=== PATIENT | male | born 1970 | race Caucasian/White ===

== ENCOUNTER 2018-09-01 15:30 | Observation (INO) ==
--- NOTE | 2018-09-01 16:10 | Emergency Department Note ---
Disposition Clinical Impression: Chest pain Qualifiers: Chest pain type: unspecified Qualified Code(s): R07.9 - Chest pain, unspecified Disposition: Admitted As Inpatient Referrals: NONE,PCP [Primary Care Provider] - Forms: ED Satisfaction Letter Chest Pain HPI - General Chief Complaint: ED Chest Pain Stated Complaint: Chest Pain Time Seen by Provider: 09/01/18 15:33 Source: patient, EMS Limitations: no limitations Vital Signs Reviewed: Yes Nursing Notes Reviewed: Yes - History of Present Illness HPI Narrative: I have re-performed and reviewed the history documented by the medical student, and I confirm its accuracy except as noted below Patient is a 48-year-old male with past medical history including hyperlipidemia, type 2 diabetes mellitus, who presents with a chief complaint of substernal chest pain since 1400 today. Patient states he has had 15 episodes of substernal chest pain which he describes as pressure that is nonradiating and lasts for 2-3 seconds at a time. 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 He complains of some nausea with these episodes. No diaphoresis. Denies shortness of breath, lightheadedness. For the past 2 days he does note he has had pain down his left arm associated with nausea but no vomiting. he has never had this before. He was told he had a history of acute ischemic events noted on EKGs in September when he had his shoulder surgery. He has not had a catheterization or stent placement. Family history significant for grandfather from STEMI at 57. Also denies history of blood clots, lower extremity swelling, recent surgery or immobilization, hemoptysis, hormone therapy. Patient arrived via EMS and received 324 mg of aspirin as well as oxygen. Severity scale (1-10): 0 - Related Data Allergies Allergy/AdvReac Type Severity Reaction Status Date / Time No Known Allergies Allergy Verified 09/01/18 15:43 All systems ED: reviewed and negative except as stated. Review of Systems: As Per HPI Constitutional: Denies: fever, chills Eyes: Denies: eye pain, vision change ENT ED: Denies: ear pain, throat pain Cardiovascular: Reports: chest pain. Denies: palpitations Respiratory: Denies: cough, dyspnea, wheezes Gastrointestinal: Reports: nausea. Denies: abdominal pain, vomiting Genitourinary: Denies: urgency, dysuria Musculoskeletal: Denies: back pain, neck pain Integumentary: Denies: rash Neurological: Denies: headache, weakness Hematological/Lymphatic: Denies: easy bleeding, easy bruising Chest Pain PMH - Past Medical History Medical history: Reports: diabetes, hyperlipidemia Psychiatric history: Reports: no psych history - Social History Smoking Status: Never smoker Alcohol use: Reports: none Drug use: Reports: none Physical Exam - General Limitations: no limitations General appearance: alert, in no apparent distress - Head Head exam: atraumatic, normocephalic - Eye Eye exam: Present: EOMI - ENT ENT exam: normal oropharynx, mucous membranes moist - Neck Neck exam: Present: full ROM, trachea midline - Chest Chest inspection: Present: normal inspection, symmetric chest wall rise. Absent: tenderness - Respiratory Respiratory exam: Present: normal lung sounds bilaterally. Absent: respiratory distress, wheezes - Cardiovascular Cardiovascular exam: Present: regular rate, normal rhythm, normal heart sounds, other (Bilateral radial pulses are equal) - Abdominal Exam Abdominal exam: Present: soft, Non-Tender. Absent: distention - Neurological Exam Neurological exam: Present: alert, oriented X3, CN II-XII intact - Psychiatric Psychiatric exam: Present: normal affect, normal mood - Skin Skin exam: Present: warm, dry, intact. Absent: diaphoresis, pallor Course Vital Signs Temperature 99.8 F H 09/01/18 15:36 Pulse Rate 83 09/01/18 15:36 Respiratory Rate 18 09/01/18 15:36 Blood Pressure 151/107 09/01/18 15:36 O2 Sat by Pulse Oximetry 97 09/01/18 15:36 Temperature 99.8 F H 09/01/18 15:36 Pulse Rate 83 09/01/18 15:36 Respiratory Rate 18 09/01/18 15:36 Blood Pressure 151/107 09/01/18 15:36 O2 Sat by Pulse Oximetry 97 09/01/18 15:36 Oxygen Delivery Oxygen Delivery Room Air Chest Pain - MDM Narrative Medical decision making narrative: Patient presents with chest pain and is currently denies any pain. He received 324 mg of aspirin. Will obtain cardiac workup to evaluate for acute ischemic event with EKG, CXR, troponin, CBC, BMP. Doubt PE as PERC is negative. Blood pressures are elevated and he denies history of hypertension. He is currently on IVFs. Will monitor pain and do serial EKGs as needed. Anticipate patient will be admitted. Patient received aspirin en route via EMS does not need nitroglycerin at this time as he is chest pain-free. 1700 Upon reevaluation, he has had 2 episodes of chest pain that lasted 2-3 seconds and resolved spontaneously. No associated symptoms. Labs reviewed. Troponin is normal. EKG did not show any ST elevation or depression. He has not needed nitroglycerin during his stay. Blood pressure is improved. We will obtain a second troponin and ekg at 1999 and reevaluate. Chest x-ray normal. 2019 He is not had persistent chest pain. Repeat EKG reviewed. No acute ST elevation or depression. EKG appears to be unchanged from prior. Repeat troponin negative. Given the patient's heart score of 4 had a long discussion with the patient and his family at bedside on whether to discharge him or admit him. We discussed with cardiology, who states they would like the patient to be admitted for a stress test as they cannot guarantee close follow-up as an outpatient given the holiday. Discussed with hospitalist who will admit the patient. This was discussed with patient and family and they are agreeable to the plan of care. He will be admitted for further chest pain workup. - Medical Records Medical records reviewed: Yes I reviewed the patient's medical records. - Lab Data Lab results reviewed: Yes I reviewed the patient's lab results. Result diagrams: 09/01/18 16:18 09/01/18 16:18 Lab Results 09/01/18 09/01/18 09/01/18 Range/Units 16:18 16:18 16:18 WBC 8.6 (4.3-11.1) K/mcL RBC 5.12 (4.19-5.50) M/mcL Hgb 16.0 (12.9-16.9) g/dL Hct 45.9 (37.5-50.1) % MCV 89.6 (83.0-100.0) fL MCH 31.3 (28.0-33.3) pg MCHC 34.9 (31.6-35.5) g/dL RDW 13.0 (11.5-14.5) % Plt Count 166 (140-400) K/mcL MPV 11.5 (9.4-12.4) fL Immature Gran % 0.9 (0-4) % Seg Neutrophils % 65.2 % Lymphocytes % 23.0 % Monocytes % 9.0 % Eosinophils % 1.2 % Basophils % 0.7 % Neutrophils # 5.6 (1.6-8.9) K/mcL Lymphocytes # 2.0 (0.6-4.6) K/mcL Monocytes # 0.8 (0.0-1.3) K/mcL Eosinophils # 0.1 (0.0-0.6) K/mcL Basophils # 0.1 (0.0-0.2) K/mcL PT 12.2 H (9.4-12.1) Seconds INR 1.1 APTT 27.3 (26.0-36.0) Seconds Sodium 135 L (136-145) mEq/L Potassium 3.8 (3.5-5.1) mEq/L Chloride 105 (98-107) mEq/L Carbon Dioxide 20 L (23-29) mEq/L BUN 17 (6-20) mg/dL Creatinine 0.99 (0.70-1.30) mg/dL Est GFR ( Amer) > 60 (> 60) Est GFR (Non-Af Amer) > 60 (> 60) BUN/Creatinine Ratio 17 (6-26) Glucose 234 H (70-105) mg/dL Calculated Osmolality 289 (280-300) Calcium 9.1 (8.6-10.3) mg/dL Troponin I < 0.03 (< 0.04) ng/mL 09/01/18 Range/Units 20:35 WBC (4.3-11.1) K/mcL RBC (4.19-5.50) M/mcL Hgb (12.9-16.9) g/dL Hct (37.5-50.1) % MCV (83.0-100.0) fL MCH (28.0-33.3) pg MCHC (31.6-35.5) g/dL RDW (11.5-14.5) % Plt Count (140-400) K/mcL MPV (9.4-12.4) fL Immature Gran % (0-4) % Seg Neutrophils % % Lymphocytes % % Monocytes % % Eosinophils % % Basophils % % Neutrophils # (1.6-8.9) K/mcL Lymphocytes # (0.6-4.6) K/mcL Monocytes # (0.0-1.3) K/mcL Eosinophils # (0.0-0.6) K/mcL Basophils # (0.0-0.2) K/mcL PT (9.4-12.1) Seconds INR APTT (26.0-36.0) Seconds Sodium (136-145) mEq/L Potassium (3.5-5.1) mEq/L Chloride (98-107) mEq/L Carbon Dioxide (23-29) mEq/L BUN (6-20) mg/dL Creatinine (0.70-1.30) mg/dL Est GFR ( Amer) (> 60) Est GFR (Non-Af Amer) (> 60) BUN/Creatinine Ratio (6-26) Glucose (70-105) mg/dL Calculated Osmolality (280-300) Calcium (8.6-10.3) mg/dL Troponin I < 0.03 (< 0.04) ng/mL - Radiology Data Radiology results reviewed: Yes I reviewed the patient's radiology results. Chest X-Ray 09/01/18 16:04 IMPRESSION: Negative chest. D/ / Zoey Tsang MD / Zoey Tsang MD Interpreting Provider: Zoey Tsang MD - EKG Data EKG attestation: Yes I reviewed and interpreted this EKG. EKG results narrative: EKG at 1539 shows sinus rhythm with heart rate 82. QT interval 379. QTc interval 443. 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 There is no new acute ST elevations or depressions.
--- NOTE | 2018-09-01 16:14 | Emergency Department Note ---
Disposition Clinical Impression: Chest pain Disposition: Still a Patient Referrals: NONE,PCP [Primary Care Provider] - Forms: ED Satisfaction Letter General Adult HPI - General Chief complaint: ED Chest Pain Stated complaint: Chest Pain Time Seen by Provider: 09/01/18 15:33 Source: patient, EMS Limitations: no limitations - History of Present Illness HPI Narrative: 48 year old male patient presents to the ED with chief complaint of chest pain. 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 He describes it as a pressure in the middle of his chest, he states it lasted for 2-3 seconds and occurred every 3-5 minutes, he admitted to having dizziness with this episode. Patient stated that at 2:50pm his pain disappeared. He states that on Friday08/30/18 he felt left shoulder pain and had some nausea but denied any vomiting. Today he denied any fever, diaphoresis, headache, nausea, vomiting, blurry vision, shortness of breath, numbness, tingling, constipation, diarrhea. Patient denies smoking, drinking alcohol, or any illicit drug use. He has a family history of cardiac disease on his mother's side, Grandfather at age 57 due to cardiac causes. Patient was brought to the hospital via EMS who gave him four 81 mg Aspirin and oxygen. Onset (ago): hour(s) Location: chest Radiation: non-radiation Pain Scale: 0 Quality: crushing Consistency: now resolved Treatments Prior to Arrival: Aspirin - Related Data Allergies Allergy/AdvReac Type Severity Reaction Status Date / Time No Known Allergies Allergy Verified 09/01/18 15:43 Constitutional: Denies: fever, weakness Cardiovascular: Reports: chest pain. Denies: dyspnea on exertion, edema Respiratory: Denies: cough, dyspnea, wheezes Gastrointestinal: Reports: nausea. Denies: abdominal pain, vomiting, diarrhea, constipation Genitourinary: Denies: dysuria Neurological: Reports: other (Dizziness). Denies: headache, weakness, numbness Past Medical History - Past Medical History Medical history: Reports: diabetes, hyperlipidemia Psychiatric history: Reports: no psych history - Social History Smoking Status: Never smoker Smokeless Tobacco Status: No Alcohol use: Reports: none Drug use: Reports: none Physical Exam - General Limitations: no limitations General appearance: alert, in no apparent distress - Head Head exam: atraumatic, normocephalic - Eye Eye exam: Present: normal appearance, PERRL - ENT ENT exam: normal exam, mucous membranes moist - Chest Chest inspection: Present: normal inspection, symmetric chest wall rise - Respiratory Respiratory exam: Present: normal lung sounds bilaterally - Cardiovascular Cardiovascular exam: Present: regular rate, normal rhythm - Abdominal Exam Abdominal exam: Present: soft, Non-Tender, normal bowel sounds - Neurological Exam Neurological exam: Present: alert, oriented X3 - Psychiatric Psychiatric exam: Present: normal affect, normal mood - Skin Skin exam: Present: warm, intact, normal color Course Vital Signs Temperature 99.8 F H 09/01/18 15:36 Pulse Rate 83 09/01/18 15:36 Respiratory Rate 18 09/01/18 15:36 Blood Pressure 151/107 09/01/18 15:36 O2 Sat by Pulse Oximetry 97 09/01/18 15:36 Temperature 99.8 F H 09/01/18 15:36 Pulse Rate 83 09/01/18 15:36 Respiratory Rate 18 09/01/18 15:36 Blood Pressure 151/107 09/01/18 15:36 O2 Sat by Pulse Oximetry 97 09/01/18 15:36 Oxygen Delivery Oxygen Delivery Room Air Medical Decision Making - Lab Data Result diagrams: 09/01/18 16:18 09/01/18 16:18 Lab Results 09/01/18 09/01/18 09/01/18 Range/Units 16:18 16:18 16:18 WBC 8.6 (4.3-11.1) K/mcL RBC 5.12 (4.19-5.50) M/mcL Hgb 16.0 (12.9-16.9) g/dL Hct 45.9 (37.5-50.1) % MCV 89.6 (83.0-100.0) fL MCH 31.3 (28.0-33.3) pg MCHC 34.9 (31.6-35.5) g/dL RDW 13.0 (11.5-14.5) % Plt Count 166 (140-400) K/mcL MPV 11.5 (9.4-12.4) fL Immature Gran % 0.9 (0-4) % Seg Neutrophils % 65.2 % Lymphocytes % 23.0 % Monocytes % 9.0 % Eosinophils % 1.2 % Basophils % 0.7 % Neutrophils # 5.6 (1.6-8.9) K/mcL Lymphocytes # 2.0 (0.6-4.6) K/mcL Monocytes # 0.8 (0.0-1.3) K/mcL Eosinophils # 0.1 (0.0-0.6) K/mcL Basophils # 0.1 (0.0-0.2) K/mcL PT 12.2 H (9.4-12.1) Seconds INR 1.1 APTT 27.3 (26.0-36.0) Seconds Sodium 135 L (136-145) mEq/L Potassium 3.8 (3.5-5.1) mEq/L Chloride 105 (98-107) mEq/L Carbon Dioxide 20 L (23-29) mEq/L BUN 17 (6-20) mg/dL Creatinine 0.99 (0.70-1.30) mg/dL Est GFR ( Amer) > 60 (> 60) Est GFR (Non-Af Amer) > 60 (> 60) BUN/Creatinine Ratio 17 (6-26) Glucose 234 H (70-105) mg/dL Calculated Osmolality 289 (280-300) Calcium 9.1 (8.6-10.3) mg/dL Troponin I < 0.03 (< 0.04) ng/mL
[2018-09-01 16:29] LABS: Basophils # 0.1 K/mcL (0.0-0.2); Basophils % 0.7 %; Eosinophils # 0.1 K/mcL (0.0-0.6); Eosinophils % 1.2 %; Hematocrit 45.9 % (37.5-50.1); Immature Granulocytes % 0.9 % (0-4); Mean Corpuscular HGB Conc 34.9 g/dL (31.6-35.5); Mean Corpuscular Hemoglobin 31.3 pg (28.0-33.3); Mean Corpuscular Volume 89.6 fL (83.0-100.0); Mean Platelet Volume 11.5 fL (9.4-12.4); Monocytes # 0.8 K/mcL (0.0-1.3); Neutrophils # 5.6 K/mcL (1.6-8.9); Platelet Count 166 K/mcL (140-400); Red Blood Count 5.12 M/mcL (4.19-5.50); Segmented Neutrophils % 65.2 %
[2018-09-01 16:40] LABS: INR 1.1; Prothrombin Time 12.2 Seconds (9.4-12.1)
[2018-09-01 16:43] LABS: Activated Partial Thrombo Time 27.3 Seconds (26.0-36.0)
[2018-09-01 16:51] LABS: Troponin I < 0.03 ng/mL (< 0.04)
[2018-09-01 16:52] LABS: BUN/Creatinine Ratio 17 (6-26); Blood Urea Nitrogen 17 mg/dL (6-20); Calcium 9.1 mg/dL (8.6-10.3); Carbon Dioxide 20 mEq/L (23-29); Chloride 105 mEq/L (98-107); Glucose 234 mg/dL (70-105); Osmolality,Calculated 289 (280-300); Potassium 3.8 mEq/L (3.5-5.1); Sodium 135 mEq/L (136-145); eGFR For Non-African Americans > 60 (> 60)
--- NOTE | 2018-09-01 20:52 | Emergency Department Note ---
Disposition Clinical Impression: Chest pain Disposition: Still a Patient Referrals: NONE,PCP [Primary Care Provider] - Forms: ED Satisfaction Letter General Adult HPI - General Chief complaint: ED Chest Pain Stated complaint: Chest Pain Time Seen by Provider: 09/01/18 15:33 Source: patient, EMS Limitations: no limitations - History of Present Illness Location: chest Pain Scale: 0 Quality: crushing Treatments Prior to Arrival: Aspirin - Related Data Allergies Allergy/AdvReac Type Severity Reaction Status Date / Time No Known Allergies Allergy Verified 09/01/18 15:43 Constitutional: Denies: fever, weakness Eyes: Denies: eye pain, vision change ENT ED: Denies: ear pain, throat pain Cardiovascular: Reports: chest pain. Denies: dyspnea on exertion, edema Respiratory: Denies: cough, dyspnea, wheezes Gastrointestinal: Reports: nausea. Denies: abdominal pain, vomiting, diarrhea, constipation Genitourinary: Denies: dysuria Musculoskeletal: Denies: back pain, neck pain Integumentary: Denies: rash Neurological: Reports: other (Dizziness). Denies: headache, weakness, numbness Hematological/Lymphatic: Denies: easy bleeding, easy bruising Past Medical History - Past Medical History Medical history: Reports: diabetes, hyperlipidemia Psychiatric history: Reports: no psych history - Social History Smoking Status: Never smoker Smokeless Tobacco Status: No Alcohol use: Reports: none Drug use: Reports: none Physical Exam - General Limitations: no limitations General appearance: alert, in no apparent distress Course Vital Signs Temperature 99.8 F H 09/01/18 15:36 Pulse Rate 83 09/01/18 15:36 Respiratory Rate 18 09/01/18 15:36 Blood Pressure 151/107 09/01/18 15:36 O2 Sat by Pulse Oximetry 97 09/01/18 15:36 Temperature 99.8 F H 09/01/18 15:36 Pulse Rate 83 09/01/18 15:36 Respiratory Rate 18 09/01/18 15:36 Blood Pressure 151/107 09/01/18 15:36 O2 Sat by Pulse Oximetry 97 09/01/18 15:36 Oxygen Delivery Oxygen Delivery Room Air Medical Decision Making - Lab Data Result diagrams: 09/01/18 16:18 09/01/18 16:18 Lab Results 09/01/18 09/01/18 09/01/18 Range/Units 16:18 16:18 16:18 WBC 8.6 (4.3-11.1) K/mcL RBC 5.12 (4.19-5.50) M/mcL Hgb 16.0 (12.9-16.9) g/dL Hct 45.9 (37.5-50.1) % MCV 89.6 (83.0-100.0) fL MCH 31.3 (28.0-33.3) pg MCHC 34.9 (31.6-35.5) g/dL RDW 13.0 (11.5-14.5) % Plt Count 166 (140-400) K/mcL MPV 11.5 (9.4-12.4) fL Immature Gran % 0.9 (0-4) % Seg Neutrophils % 65.2 % Lymphocytes % 23.0 % Monocytes % 9.0 % Eosinophils % 1.2 % Basophils % 0.7 % Neutrophils # 5.6 (1.6-8.9) K/mcL Lymphocytes # 2.0 (0.6-4.6) K/mcL Monocytes # 0.8 (0.0-1.3) K/mcL Eosinophils # 0.1 (0.0-0.6) K/mcL Basophils # 0.1 (0.0-0.2) K/mcL PT 12.2 H (9.4-12.1) Seconds INR 1.1 APTT 27.3 (26.0-36.0) Seconds Sodium 135 L (136-145) mEq/L Potassium 3.8 (3.5-5.1) mEq/L Chloride 105 (98-107) mEq/L Carbon Dioxide 20 L (23-29) mEq/L BUN 17 (6-20) mg/dL Creatinine 0.99 (0.70-1.30) mg/dL Est GFR ( Amer) > 60 (> 60) Est GFR (Non-Af Amer) > 60 (> 60) BUN/Creatinine Ratio 17 (6-26) Glucose 234 H (70-105) mg/dL Calculated Osmolality 289 (280-300) Calcium 9.1 (8.6-10.3) mg/dL Troponin I < 0.03 (< 0.04) ng/mL 09/01/18 Range/Units 20:35 WBC (4.3-11.1) K/mcL RBC (4.19-5.50) M/mcL Hgb (12.9-16.9) g/dL Hct (37.5-50.1) % MCV (83.0-100.0) fL MCH (28.0-33.3) pg MCHC (31.6-35.5) g/dL RDW (11.5-14.5) % Plt Count (140-400) K/mcL MPV (9.4-12.4) fL Immature Gran % (0-4) % Seg Neutrophils % % Lymphocytes % % Monocytes % % Eosinophils % % Basophils % % Neutrophils # (1.6-8.9) K/mcL Lymphocytes # (0.6-4.6) K/mcL Monocytes # (0.0-1.3) K/mcL Eosinophils # (0.0-0.6) K/mcL Basophils # (0.0-0.2) K/mcL PT (9.4-12.1) Seconds INR APTT (26.0-36.0) Seconds Sodium (136-145) mEq/L Potassium (3.5-5.1) mEq/L Chloride (98-107) mEq/L Carbon Dioxide (23-29) mEq/L BUN (6-20) mg/dL Creatinine (0.70-1.30) mg/dL Est GFR ( Amer) (> 60) Est GFR (Non-Af Amer) (> 60) BUN/Creatinine Ratio (6-26) Glucose (70-105) mg/dL Calculated Osmolality (280-300) Calcium (8.6-10.3) mg/dL Troponin I < 0.03 (< 0.04) ng/mL Attestation Statement - Attestation Attestation: I examined this patient and my medical decision-making was reviewed with the Resident Physician. I agree with the documented findings, disposition and treatment plan as described except to the extent set forth below. HEART score is 4. I conducted a shared decision-making discussion with him, and he had opted for discharge and close outpatient follow-up. However, when I spoke with cardiology, they were unable to guarantee close follow-up with the holiday approaching, and recommended admission for an inpatient workup. Accepted by hospitalist. Will be admitted to the floor.
[2018-09-01] MEDS ORDERED: Acetaminophen 325 MG TABLET PO PRN (23:22)
[2018-09-01] MEDS ORDERED: traMADol 50 MG TABLET PO PRN (23:22)
[2018-09-01] MEDS ORDERED: Naloxone 0.4 MG/ML INJ IVP PRN (23:22)
[2018-09-01] MEDS ORDERED: Dextrose Gel 15 GM/37.5 ML TUBE PO PRN ×2 (23:31)
[2018-09-01] MEDS ORDERED: D5% in Water 1,000 ML IVC PRN (23:31)
[2018-09-01] MEDS ORDERED: *HR* Dextrose 50 % in Water (Syg) 50 ML SYRINGE IVP PRN (23:31)
--- NOTE | 2018-09-01 23:32 | Internal Med History&Physical ---
Date of Encounter: 09/01/18 Time of Encounter: 22:30 Internal Medicine - H&P: HPI Chief complaint: CP Admitted From: Emergency Dept Plans for Post Hospital Care: Home History of present illness: Mr. Hill is a 48 year old male w/PMH of HLD, DM, and neuropathy presents from the ED w/CC of CP that began at approximately 14:00 while he was at work. Pt. states he works at [employer] and was exerting himself but not with extremely strenuous work. Patient describes pain as centralized in chest presenting as pressure which was intermittent in 2-3 second intervals. Associated sx: nausea and diaphoresis. No alleviating factors. Pt. states that he has not had sx such as this before. Pt. also reports previous EKGs for surgery clearance in September suggested previous ischemia. Denies cardiac hx, heart catheterizations, or stent placement. Denies hx of DVTs/PEs. Patient was given 324 mg aspirin by EMS prior to arrival. Patient denies recent illness, fever, chills, headache, changes in vision, unusual bleeding, abdominal pain, shortness of breath, cough, chest congestion, diarrhea, constipation, numbness, tingling, pre-syncope, or syncope. Past Med Surg Social Fam HX - Past Medical History Source: patient, old records reviewed, obtained from family Medical history: diabetes, hyperlipidemia, other (Neuropathy) Psychiatric history: no psych history - Social History Smoking Status: Never smoker Smokeless Tobacco Status: No Alcohol use: none Drug use: none Occupational status: employed Current living situation: Home, With Family Activity Level: Independent ambulation Recent Out of Country Travel Within the Last 8 Weeks: No Exposure or Possible Exposure to Illness During Travel: No - Family History Grandfather Race: Family Member Ethnicity: Non- Living Status: Age at : 73 Cause of : CAD Hx Family Cardiac Disorders: Yes (NC, CAD) Hx Family Endocrine Disorder: Yes (DM) Father Race: Family Member Ethnicity: Non- Living Status: Still Living Hx Family Endocrine Disorder: Yes (DM) Mother Race: Family Member Ethnicity: Non- Living Status: Still Living Hx Family Endocrine Disorder: Yes (DM) Sister Race: Family Member Ethnicity: Non- Living Status: Still Living Hx Family Medical Disorders: No Internal Medicine - H&P: Meds Atorvastatin [Lipitor] 20 mg PO HS 09/02/18 [History] Gabapentin [Neurontin] 300 mg PO HS 09/02/18 [History] Glipizide Xl 10 mg PO DAILY 09/02/18 [History] Semaglutide [Ozempic] 2 mg SQ QWEEK 09/02/18 [History] Allergy/AdvReac Type Severity Reaction Status Date / Time Bee stings AdvReac Swelling Uncoded 09/02/18 01:40 of Lip/Tongue/Throat All Systems PM: A 10-system review of systems was performed and is negative for pertinent findings except as documented above in the HPI. - Constitutional Constitutional: as per HPI, no chills, no fever(s), no night sweats - EENT Eyes: no change in vision, no discharge, no pain, no photophobia Ears: no ear discharge, no ear pain, no tinnitus Nose, mouth and throat: no dysphagia, no nasal discharge, no neck pain, no sore throat - Breasts Breasts: as per HPI - Cardiovascular Cardiovascular ROS IM: as per HPI, chest pain, diaphoresis, lightheadedness, no dyspnea, no palpitations, no syncope - Respiratory Respiratory: no cough, no dyspnea, no wheezing, no excessive phlegm production - Gastrointestinal Gastrointestinal: as per HPI, nausea, no abdominal pain, no diarrhea, no hematemesis, no hematochezia, no melena, no vomiting - Genitourinary Genitourinary ROS male: as per HPI - Musculoskeletal Musculoskeletal ROS IM: as per HPI, no numbness, no tingling - Integumentary Integumentary IM: no rash, no unusual bruising - Neurological Neurological ROS: as per HPI, dizziness, no confusion, no convulsions, no focal weakness, no numbness, no tingling, no tremor(s) - Psychiatric Psychiatric: as per HPI - Endocrine Endocrine IM: as per HPI - Hematologic/Lymphatic Hematologic/Lymphatic: no easy bruising - Allergic/Immunologic Allergic/Immunologic: as per HPI - Constitutional Vitals: Temp Pulse Resp BP Pulse Ox 99.8 F H 83 16 135/98 97 09/01/18 15:36 09/01/18 15:36 09/01/18 23:14 09/01/18 23:14 09/01/18 15:36 General appearance: Present: cooperative, A&O X 3, pleasant, no acute distress, obese, answers questions appropriately Exam: Patient examined at bedside. Pt. resting in bed and reports intermittent CP that presents as pressure in central chest w/o alleviating factors. Reported nausea that has improved and dizziness with standing. Pt. denies any other symptoms or complaints at this time. VS: 98.7F temp, HR 65, RR 16, BP 130/83, and SpO2 96% on RA. - Head Head exam: Present: atraumatic, normocephalic - Eye Eye exam: Present: PERRL, conjuntiva pink, sclera anicteric Pupils: Present: PERRL - Neck Neck exam general surgery: Present: normal inspection, supple, trachea midline. Absent: lymphadenopathy - Respiratory Respiratory exam: Present: CTAB. Absent: accessory muscle use, rales, rhonchi, wheezes - Cardiovascular Cardiovascular exam: Present: RRR, +S1, +S2. Absent: diastolic murmur, gallop, rubs, systolic murmur - GI/Abdominal GI/Abdominal exam: Present: normal bowel sounds, soft, no peritoneal signs. Absent: distended, tenderness - Rectal Rectal exam: Present: deferred - Additional comments: exam deferred. - Extremities Exam Extremities exam: Present: warm, radial pulses palpable and symmetrical. Absent: calf tenderness, cyanotic, pedal edema - Back Exam Back exam: Present: normal inspection - Neurological Exam Neurological exam: Present: alert, CN II-XII intact, oriented X3, no focal deficits. Absent: pronater drift, facial droop, speech deficit - Psychiatric Psychiatric exam: Present: normal affect, normal mood - Skin Skin exam: Present: dry, intact Internal Med - H&P Results - Labs CBC & Chem 7: 18 16:18 09/01/18 16:18 Labs: Short CBC 09/01/18 Range/Units 16:18 WBC 8.6 (4.3-11.1) K/mcL Hgb 16.0 (12.9-16.9) g/dL Hct 45.9 (37.5-50.1) % Plt Count 166 (140-400) K/mcL Neutrophils # 5.6 (1.6-8.9) K/mcL BMP 09/01/18 16:18 Sodium 135 L Potassium 3.8 Chloride 105 Carbon Dioxide 20 L BUN 17 Creatinine 0.99 Glucose 234 H Calcium 9.1 Cardiac Enzymes 09/01/18 09/01/18 Range/Units 16:18 20:35 Troponin I < 0.03 < 0.03 (< 0.04) ng/mL - EKG Data EKG shows normal: sinus rhythm - EKG Data Prior EKG available for review: yes EKG comments: 09/02/18 01:21 EKG dated 09/01/18 15:39 shows sinus rhythm with abnormal R-wave progression, late transition and inferior infarct, probably old. EKG dated 09/01/18 20:22 shows sinus rhythm with LAD. Consider left anterior fascicular block. Abnormal R-wave progression in late transition and borderline T abnormalities in anterior leads. - Impressions ITS Impressions Chest X-Ray 09/01/18 16:04 IMPRESSION: Negative chest. D/ / Zoey Tsang MD / Zoey Tsang MD Interpreting Provider: Zoey Tsang MD - Diagnostic Studies Chest x-ray Additional comments: Impressions Chest X-Ray 09/01/18 16:04 IMPRESSION: Negative chest. D/ / Zoey Tsang MD / Zoey Tsang MD Interpreting Provider: Zoey Tsang MD - Assessment and plan (1) Chest pain Current Visit: Yes Status: Acute Assessment and plan: Acute CP that began at approximately 14:00 while he was at work. Pt. states he works at [employer] and was exerting himself but not with extremely strenuous work. Patient describes pain as centralized in chest presenting as pressure which was intermittent in 2-3 second intervals. Associated sx: nausea and diaphoresis. No alleviating factors. Pt. states that he has not had sx such as this before. Pt. also reports previous EKGs for surgery clearance in September suggested previous ischemia. Denies cardiac hx, heart catheterizations, or stent placement. Denies hx of DVTs/PEs. Cardiology consult placed in ED with note that the consult is confirmed. First and second troponins less than 0.03. Will trend. Echocardiogram to be done in early afternoon tomorrow. Patient to be nothing by mouth 00:01 for planned pharmacologic stress test if troponins remain WNL. ASA. 80 mg Lipitor once. SL nitroglycerin when necessary. Pt. is high risk d/t current CP w/exertion w/no alleviating factors, familial hx of NC (grandfather); and risk factors of obesity, HLD, and diabetes. Observation. Qualifiers: Chest pain type: other chest pain Qualified Code(s): R07.89 - Other chest pain; R07.8 - Other chest pain (2) Nausea Current Visit: Yes Status: Acute Assessment and plan: Acute nausea r/t CP sx. 12.5 mg IVP Phenergan every 6 hours when necessary for nausea and vomiting. (3) HLD (hyperlipidemia) Current Visit: Yes Status: Chronic Assessment and plan: Hx of chronic HLD. Lipid panel in a.m. labs. One-time dose of 80 mg Lipitor due to current CP. We will continue patient's 20 mg Lipitor dosage at bedtime starting tomorrow. Qualifiers: Hyperlipidemia type: pure hypercholesterolemia Qualified Code(s): E78.00 - Pure hypercholesterolemia, unspecified; E78.0 - Pure hypercholesterolemia (4) Diabetes Current Visit: Yes Status: Chronic Assessment and plan: Hx of chronic diabetes controlled w/oral medications and Semaglutide. Will hold patient's oral antihyperglycemic medications and injection pen and administer low-dose correction sliding scale insulin with hypoglycemic protocol. BG checks before meals at bedtime. A1c in a.m. labs. Qualifiers: Diabetes mellitus type: type 2 Diabetes mellitus terminal carman insulin use: without retirement use Diabetes mellitus complication status: with neurologic complications Diabetes mellitus complication detail: with unspecified neuropathy Qualified Code(s): E11.40 - Type 2 diabetes mellitus with diabetic neuropathy, unspecified (5) Neuropathy Current Visit: Yes Status: Chronic Assessment and plan: Hx of chronic neuropathy in bilateral LEs d/t DM. Continue patient's gabapentin at bedtime. (6) DVT prophylaxis Current Visit: Yes Status: Acute Assessment and plan: Heparin 5000 units SQ every 8 hour for DVT prophylaxis. Monitor patient for signs of bleeding. - Time Spent With Patient Total time spent is greater than 50% in coordination of care (as documented) at patient's floor/unit and/or counseling patient: Greater than 35 minutes
[2018-09-02] MEDS: Insulin LISPRO 300 UNITS/3 ML VIAL SQ SCH ×5 (00:07→21:04)
[2018-09-02] MEDS ORDERED: Nitroglycerin 0.4 MG TAB.SUBL SL PRN (01:16)
[2018-09-02] MEDS ORDERED: *HR* Promethazine 25 MG/ML VIAL IVP PRN (01:17)
[2018-09-02] MEDS: Gabapentin 300 MG CAPSULE PO SCH ×2 (01:31→20:18)
[2018-09-02 04:33] LABS: Basophils # 0.1 K/mcL (0.0-0.2); Basophils % 0.7 %; Eosinophils # 0.2 K/mcL (0.0-0.6); Eosinophils % 2.4 %; Hematocrit 43.8 % (37.5-50.1); Hemoglobin 15.4 g/dL (12.9-16.9); Immature Granulocytes % 0.7 % (0-4); Lymphocytes # 2.8 K/mcL (0.6-4.6); Lymphocytes % 32.1 %; Mean Corpuscular HGB Conc 35.2 g/dL (31.6-35.5); Mean Corpuscular Hemoglobin 31.8 pg (28.0-33.3); Mean Corpuscular Volume 90.3 fL (83.0-100.0); Mean Platelet Volume 11.9 fL (9.4-12.4); Monocytes # 0.8 K/mcL (0.0-1.3); Monocytes % 9.7 %; Neutrophils # 4.7 K/mcL (1.6-8.9); Platelet Count 153 K/mcL (140-400); Red Blood Count 4.85 M/mcL (4.19-5.50); Red Cell Distribution Width 13.2 % (11.5-14.5); Segmented Neutrophils % 54.4 %
[2018-09-02 04:51] LABS: Alanine Aminotransferase 33 Units/L (7-52); Albumin 4.1 g/dL (3.5-5.7); Alkaline Phosphatase 50 Units/L (34-104); Aspartate Amino Transferase 30 Units/L (13-39); BUN/Creatinine Ratio 21 (6-26); Bilirubin,Total 0.8 mg/dL (0.3-1.0); Blood Urea Nitrogen 16 mg/dL (6-20); Calcium 8.8 mg/dL (8.6-10.3); Carbon Dioxide 23 mEq/L (23-29); Chloride 106 mEq/L (98-107); Chol/HDL Ratio 4.6 (0-4.9); Cholesterol 119 mg/dL (< 200); Globulin 2.1 g/dL (2.4-3.5); Glucose 188 mg/dL (70-105); HDL Cholesterol 26 mg/dL (40-59); LDL Cholesterol,Calculated 44 mg/dL (0-99); Magnesium 2.1 mg/dL (1.6-2.6); Osmolality,Calculated 288 (280-300); Potassium 3.9 mEq/L (3.5-5.1); Sodium 136 mEq/L (136-145); Total Protein 6.2 g/dL (6.4-8.9); Triglycerides 244 mg/dL (< 150); eGFR For Non-African Americans > 60 (> 60)
[2018-09-02] MEDS: *HR* Heparin 5,000 UNIT/ML VIAL SQ SCH ×3 (05:53→20:18)
[2018-09-02] MEDS: Aspirin Enteric Coated 81 MG Tablet PO SCH (08:03)
[2018-09-02 10:34] LABS: Estimated Average Glucose 171 mg/dl; Hemoglobin A1C 7.6 %
[2018-09-02] MEDS ORDERED: Perflutren Lipid Microsphere 1.3 ML in 0.9 % Sodium Chloride 8.7 ML IVP ONE (11:51)
--- NOTE | 2018-09-02 14:17 | Internal Med Progress Note ---
Hospitalist Progress Note - Encounter Date of Encounter: 09/02/18 Time of Encounter: 09:00 - Subjective Interval History: Mr. Hill is a 48 year old male w/PMH of HLD, DM, and neuropathy presents from the ED w/CC of CP that began at approximately 14:00 while he was at work. Pt stated he works at [employer] and was exerting himself but not with extremely strenuous work. Patient describes pain as centralized in chest presenting as pressure which was intermittent in 2-3 second intervals. He did have intermittent CP from last 2-3 days. He denied any active CP. Patient was admitted in the hospital and placed him on patient monitor. No events over night. Patient had POP ( Caffeine ) at 1.00 AM, unable to do stress test is morning - Exam Vitals: Temp Pulse Resp BP Pulse Ox 98.1 F 64 15 127/82 96 09/02/18 11:53 09/02/18 11:53 09/02/18 11:53 09/02/18 11:53 09/02/18 11:53 Exam: Gen: Alert, awake, Oriented to time,place and person Chest: Diminished breath sounds B/L, No wheezing, No crackles, No rales Heart: S1S2+ RRR No murmurs Abd: Soft, NT, BS +, No organomegaly Ext: No edema, pulses are palpable, No calf tenderness Neuro : Benign findings Skin: No rash. - Assessment and Plan (1) Chest pain Current Visit: Yes Status: Acute Assessment and Plan: So far negative troponin reviewed EKG showed some nonspecific T wave abnormalities continue aspirin and Statin since patient is high risk for ACS will do nuclear stress test (2) Nausea Current Visit: Yes Status: Acute Assessment and Plan: Improved (3) HLD (hyperlipidemia) Current Visit: Yes Status: Chronic Assessment and Plan: Hx of chronic HLD Reviewed FLP - WNL cont Lipitor (4) Diabetes Current Visit: Yes Status: Chronic Assessment and Plan: HbA1C 7.6 on ISS ADA diet (5) DVT prophylaxis Current Visit: Yes Status: Acute Assessment and Plan: Heparin 5000 units SQ every 8 hour for DVT prophylaxis. Monitor patient for signs of bleeding. (6) Neuropathy Current Visit: Yes Status: Chronic Assessment and Plan: Hx of chronic neuropathy in bilateral LEs d/t DM. Continue patient's gabapentin at bedtime. - Time Spent with Patient Total time spent is greater than 50% in coordination of care (as documented) at patient's floor/unit and/or counseling patient: Internal Medicine: Result - Labs CBC & Chem 7: 09/02/18 03:20 09/02/18 03:20 Labs: Short CBC 09/01/18 09/02/18 Range/Units 16:18 03:20 WBC 8.6 8.6 (4.3-11.1) K/mcL Hgb 16.0 15.4 (12.9-16.9) g/dL Hct 45.9 43.8 (37.5-50.1) % Plt Count 166 153 (140-400) K/mcL Neutrophils # 5.6 4.7 (1.6-8.9) K/mcL BMP 09/01/18 09/02/18 16:18 03:20 Sodium 135 L 136 Potassium 3.8 3.9 Chloride 105 106 Carbon Dioxide 20 L 23 BUN 17 16 Creatinine 0.99 0.75 Glucose 234 H 188 H Calcium 9.1 8.8 Cardiac Enzymes 09/01/18 09/01/1818 Range/Units 16:18 20:35 03:20 Troponin I < 0.03 < 0.03 < 0.03 (< 0.04) ng/mL 09/02/18 Range/Units 07:56 Troponin I < 0.03 (< 0.04) ng/mL Liver Function 09/02/18 Range/Units 03:20 Total Bilirubin 0.8 (0.3-1.0) mg/dL AST 30 (13-39) Units/L ALT 33 (7-52) Units/L Alkaline Phosphatase 50 (34-104) Units/L Albumin 4.1 (3.5-5.7) g/dL - ABG Interpretation ABG results: PT/INR, D-dimer PT 12.2 Seconds (9.4-12.1) H 09/01/18 16:18 - Impressions Impressions Chest X-Ray 09/01/18 16:04 IMPRESSION: Negative chest. D/ / Zoey Tsang MD / Zoey Tsang MD Interpreting Provider: Zoey Tsang MD Echocardiogram 09/02/18 22:42 Impressions: LVEF 65%. Normal LV chamber size, wall thickness and function. Normal right ventricular structure and function. Mild aortic regurgitation. Unable to estimate RVSP due to lack of TR jet. Mild ascending aorta dilation.s Left Ventricular Wall Motion: Rest Echo Findings All wall segments showed normal motion. Findings: Study Quality * Technically adequate exam. ECG Findings * Normal sinus rhythm. Left Ventricle * LVEF 65%. * Normal LV chamber size, wall thickness and function. * Normal left ventricular diastolic function. Right Ventricle * Normal right ventricular structure and function. Left Atrium * Normal left atrial size. Right Atrium * Normal right atrial size. Interatrial Septum * Interatrial septum not well evaluated. Aortic Valve * Normal aortic valve structure. * No aortic stenosis. * Mild aortic regurgitation. Mitral Valve * Normal mitral valve structure and function. * No mitral stenosis. * No mitral regurgitation. Tricuspid Valve * Normal tricuspid valve structure and function. * No tricuspid stenosis. * Trace tricuspid regurgitation. * Unable to estimate RVSP due to lack of TR jet. Pulmonic Valve * Pulmonic valve is not well visualized. * No pulmonic stenosis. * Trace pulmonic regurgitation. Aorta * Mild ascending aorta dilation 4.1 cm * Mild ascending aorta dilation 4.2 cm * The aortic root is mildly dilated. * The aortic root is 3.8 cm. Pericardium * The pericardium appears normal. IVC * The IVC is not well evaluated. Consult Discharge Plan - Plan Referrals: NONE,PCP [Primary Care Provider] - (1) Chest pain Qualifiers: Chest pain type: other chest pain Qualified Code(s): R07.89 - Other chest pain; R07.8 - Other chest pain (3) HLD (hyperlipidemia) Qualifiers: Hyperlipidemia type: pure hypercholesterolemia Qualified Code(s): E78.00 - Pure hypercholesterolemia, unspecified; E78.0 - Pure hypercholesterolemia (4) Diabetes Qualifiers: Diabetes mellitus type: type 2 Diabetes mellitus terminal press operator insulin use: without half-way use Diabetes mellitus complication status: with neurologic complications Diabetes mellitus complication detail: with unspecified neuropathy Qualified Code(s): E11.40 - Type 2 diabetes mellitus with diabetic neuropathy, unspecified
[2018-09-03 03:27] LABS: Basophils % 0.5 %; Eosinophils # 0.2 K/mcL (0.0-0.6); Eosinophils % 1.9 %; Hematocrit 44.9 % (37.5-50.1); Hemoglobin 15.5 g/dL (12.9-16.9); Immature Granulocytes % 0.8 % (0-4); Lymphocytes # 2.5 K/mcL (0.6-4.6); Lymphocytes % 31.5 %; Mean Corpuscular HGB Conc 34.5 g/dL (31.6-35.5); Mean Corpuscular Hemoglobin 31.4 pg (28.0-33.3); Mean Corpuscular Volume 90.9 fL (83.0-100.0); Mean Platelet Volume 11.4 fL (9.4-12.4); Monocytes # 0.7 K/mcL (0.0-1.3); Monocytes % 9.2 %; Neutrophils # 4.4 K/mcL (1.6-8.9); Platelet Count 146 K/mcL (140-400); Red Blood Count 4.94 M/mcL (4.19-5.50); Segmented Neutrophils % 56.1 %
[2018-09-03 03:48] LABS: Alanine Aminotransferase 33 Units/L (7-52); Albumin/Globulin Ratio 1.7 (1.1-2.2); Alkaline Phosphatase 52 Units/L (34-104); Aspartate Amino Transferase 27 Units/L (13-39); BUN/Creatinine Ratio 20 (6-26); Bilirubin,Total 0.7 mg/dL (0.3-1.0); Blood Urea Nitrogen 16 mg/dL (6-20); Calcium 9.2 mg/dL (8.6-10.3); Carbon Dioxide 23 mEq/L (23-29); Chloride 104 mEq/L (98-107); Globulin 2.3 g/dL (2.4-3.5); Glucose 149 mg/dL (70-105); Osmolality,Calculated 284 (280-300); Sodium 135 mEq/L (136-145); Total Protein 6.3 g/dL (6.4-8.9); eGFR For Non-African Americans > 60 (> 60)
[2018-09-03] MEDS ORDERED: Regadenoson 0.4 MG/5 ML SYRINGE IVP ONE (06:03)
[2018-09-03] MEDS: *HR* Heparin 5,000 UNIT/ML VIAL SQ SCH (06:08)
[2018-09-03] MEDS: Insulin LISPRO 300 UNITS/3 ML VIAL SQ SCH ×2 (09:28→12:13)
[2018-09-03] MEDS: Aspirin Enteric Coated 81 MG Tablet PO SCH (09:32)
[2018-09-03 11:20] VITALS: BP 125/85
--- NOTE | 2018-09-03 13:23 | Discharge Summary ---
<Tiffany Tolbert P - Last Filed: 09/03/18 13:51> - NOTES TO OUTPATIENT PROVIDER Notes to Outpatient Provider: *The patient will follow-up with primary care provider in a week. *The patient can resume his regular work without any restriction. Orders not resulted at time of discharge: Pending orders 09/03/18 07:00 NM dereje perf SPECT multi [NM] Routine 09/04/18 04:00 Complete Blood Count [HEME] AM 0400 Comprehensive Metabolic Panel AM 0400 Date of Encounter: 09/03/18 Time of Encounter: 13:05 - Discharge Diagnosis (1) Chest pain Priority: Primary Status: Resolved Assessment and Plan: The patient was admitted for acute sharp mid sternal chest pain, the workup for chest pain was negative: Chest x-ray normal, serial troponin negative , stress test did not show any evidence of ischemia and echocardiogram showed preserved ejection fraction normal left ventricular function. The patient is pain-free after admission. Qualifiers: Chest pain type: unspecified Qualified Code(s): R07.9 - Chest pain, unspecified (2) Diabetes Priority: Secondary Status: Chronic Assessment and Plan: The patient is chronic patient of diabetes and he is taking glipizide XL 10 MG and Semaglutide 2mg SQ Qualifiers: Diabetes mellitus type: type 2 Diabetes mellitus vermin exterminator insulin use: without vermin exterminator use Diabetes mellitus complication status: with neurologic complications Diabetes mellitus complication detail: with unspecified neuropathy Qualified Code(s): E11.40 - Type 2 diabetes mellitus with diabetic neuropathy, unspecified (3) HLD (hyperlipidemia) Priority: Secondary Status: Chronic Assessment and Plan: The patient has history of hyperlipidemia, he is taking Lipitor 20 MG daily. We have resumed the same after hospital discharge. Qualifiers: Hyperlipidemia type: pure hypercholesterolemia Qualified Code(s): E78.00 - Pure hypercholesterolemia, unspecified; E78.0 - Pure hypercholesterolemia (4) Neuropathy Priority: Secondary Status: Chronic Hospital course: Mr. Hill is a 48 year old male with past medical history of hyperlipidemia, diabetes, neuropathy presented to ED for chest pain while he was at work. The chest pain was, 8/10 in intensity , sharp pressure like in the lower sternum not radiating to neck or arm, he has had 2-3 episodes of chest pain lasting only for a few seconds. The patient did not have any history of ME, A. fib or other cardiac problem in the past. The patient was admitted in [facility] in patient unit for cardiac monitoring and further workup . His serial troponin was negative, EKG done in inpatient did not show any evidence of ischemia or infarction. The stress test done 09/03/2018 was negative for ischemia or infarct, pharmacologic ECG was negative for ischemia, gated ejection fraction 61%. Echocardiogram done on 09/03/2018: Ejection fraction 65%, normal left ventricular chamber size, normal wall thickness and function. His chest x-ray was normal. The patient is hemodynamically stable, no chest pain, no shortness of breath, no palpitation. His vitals are: Temperature 97.3, pulse 67 regular, BP 125/85, sat 97%. Recent lab done in inpatient: White cell count 7.9, sodium 135 potassium 4.0, BUN 16, creatinine 0.82. We are planning to discharge him today and he will follow-up with his primary care provider in a week. - Time Spent with Patient Total time spent providing and/or coordinating discharge services: - Discharge Medications Prescriptions: RX: Aspirin Enteric Coated [Aspirin EC] 81 mg PO DAILY 30 Days #30 tablet. Soldier Medications: RX: Atorvastatin [Lipitor] 20 mg PO HS 09/02/18 [History] RX: Gabapentin [Neurontin] 300 mg PO HS 09/02/18 [History] RX: GlipiZIDE XL (24 HR) [Glucotrol XL] 10 mg PO DAILY 09/02/18 [History] RX: Semaglutide [Ozempic] 2 mg SQ SA 09/02/18 [History] RX: Aspirin Enteric Coated [Aspirin EC] 81 mg PO DAILY 30 Days #30 tablet. 09/03/18 [Rx] Allergies/Adverse Reactions: Allergy/AdvReac Type Severity Reaction Status Date / Time Bee stings AdvReac Swelling Uncoded 09/02/18 01:40 of Lip/Tongue/Throat Date of admission: 09/01/18 23:00 Primary care physician: PCP NONE - Constitutional Vitals: Temp Pulse Resp BP Pulse Ox 97.3 F L 67 13 125/85 97 09/03/18 11:16 09/03/18 11:16 09/03/18 11:16 09/03/18 11:16 09/03/18 11:16 General appearance: Present: cooperative, A&O X 3, pleasant, no acute distress, obese, answers questions appropriately Exam: Gen: Alert, awake, Oriented to time,place and person Chest: Diminished breath sounds B/L, No wheezing, No crackles, No rales Heart: S1S2+ RRR No murmurs Abd: Soft, NT, BS +, No organomegaly Ext: No edema, pulses are palpable, No calf tenderness Neuro : Benign findings Skin: No rash. - Patient Status Disposition: Home, Self-Care Condition: Good Functional capacity at discharge: independent ambulation Overall status at discharge: patient is back to baseline - Discharge Instructions Instructions: Angina (DC) Follow Up With: Akin John CNP [Advanced Practice Nurse] - 09/14/18 10:15 am Forms: Inpatient Work/School Release - Diet and Activity Activity: resume usual activities as tolerated Diet: diabetic diet <Zarina Stephenson - Last Filed: 09/03/18 14:22> Orders not resulted at time of discharge: Pending orders 09/03/18 07:00 NM dereje perf SPECT multi [NM] Routine Date of Encounter: 09/03/18 - Discharge Diagnosis (1) Chest pain Status: Resolved Qualifiers: Chest pain type: unspecified Qualified Code(s): R07.9 - Chest pain, unspecified (2) Nausea Status: Acute (3) HLD (hyperlipidemia) Status: Chronic Qualifiers: Hyperlipidemia type: pure hypercholesterolemia Qualified Code(s): E78.00 - Pure hypercholesterolemia, unspecified; E78.0 - Pure hypercholesterolemia (4) Diabetes Status: Chronic Qualifiers: Diabetes mellitus type: type 2 Diabetes mellitus penitentiary insulin use: without vermin exterminator use Diabetes mellitus complication status: with neurologic complications Diabetes mellitus complication detail: with unspecified neuropathy Qualified Code(s): E11.40 - Type 2 diabetes mellitus with diabetic neuropathy, unspecified (5) DVT prophylaxis Status: Acute (6) Neuropathy Status: Chronic Hospital course: Mr. Hill is a 48 year old male - Time Spent with Patient Total time spent providing and/or coordinating discharge services: Date of admission: 09/01/18 23:00 Primary care physician: PCP NONE - Constitutional Vitals: Temp Pulse Resp BP Pulse Ox 97.3 F L 67 13 125/85 97 09/03/18 11:16 09/03/18 11:16 09/03/18 11:16 09/03/18 11:16 09/03/18 11:16 - Attending Attestation I examined this patient and my medical decision-making was reviewed with the Resident Physician Dr. Tolbert. I agree with the documented findings, disposition and treatment plan as described except to the extent set forth below. Mr. Hill is a 48 year old male w/PMH of HLD, DM, and neuropathy presents from the ED w/CC of CP that began at approximately 14:00 while he was at work. Pt stated he works at [employer] and was exerting himself but not with extremely strenuous work. Patient describes pain as centralized in chest presenting as pressure which was intermittent in 2-3 second intervals. He did have intermittent CP from last 2-3 days. He denied any active CP. Patient was admitted in the hospital and placed him on personnel monitor. His serial troponin negative and his nuclear stress test came back as negative for Ischemia / Infraction. So will d.c him home in stable condition today.
--- NOTE | 2018-09-04 17:37 | Electrocardiograph Report ---
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
--- NOTE | 2018-09-04 18:01 | Electrocardiograph Report ---
[address] [address] Test Date: 2018-09-01 Pat Name: Nam Hill Department: [id number] Room: 3B16 Gender: M [employer]: : 1970 Requested By: Bailey Tao Order Number: [id number] Reading MD: Loretta Espinosa Measurements Intervals [place] Rate: 58 P: 40 NE: 177 QRS: -46 QRSD: 111 T: 60 QT: 420 QTc: 413 Interpretive Statements Sinus rhythm Left axis deviation Abnormal R-wave progression, late transition Borderline T abnormalities, anterior leads Electronically Signed On 09-04-2018 17:59:21 EST by Loretta Espinosa
== END 2018-09-03 14:08 | disposition home or self-care (01) ==
LOC: EMEROOARM 15:30 → 3BNU 15:30 → SUATTDRO 23:00 → 3BNU 23:15
PROVIDERS: ADMIT Internal Medicine; ATTEND Family Medicine